=== PATIENT | female | born 1955 | race Caucasian/White ===

== ENCOUNTER → 2017-04-22 | Outpatient (CLI) | payer OTHER ==
--- NOTE | 2017-04-23 11:38 | MM ---
Reason for exam: screening (asymptomatic). Last mammogram was performed 1 year ago. History: Patient is postmenopausal. Family history of breast cancer in maternal cousin at age 30 and breast cancer in paternal aunt at age 30. Took estrogen for 2 years. Physical Findings: A clinical breast exam by your physician is recommended on an annual basis and results should be correlated with mammographic findings. MG Screening Mammo w CAD Bilateral CC and MLO view(s) were taken. Prior study comparison: April 21, 2016, bilateral MG screening mammo w CAD. May 11, 2014, bilateral MG screening mammo w CAD. April 12, 2013, bilateral digital screening mammo w/CAD. The breast tissue is heterogeneously dense. This may lower the sensitivity of mammography. Finding: There are typically benign calcifications in both breasts. Stable nodule upper outer right breast. No significant changes in finding since April 21, 2016, May 11, 2014, and April 12, 2013. ASSESSMENT: Benign, BI-RAD 2 RECOMMENDATION: Routine screening mammogram of both breasts in 1 year.
== END ==
LOC: RADMAMWWP 10:07
PROVIDERS: ATTEND Internal Medicine
DX: Z12.31 Encounter for screening mammogram for malignant neoplasm of breast (principal)

== ENCOUNTER → 2019-12-11 | Outpatient (CLI) | payer MEDICARE ==
--- NOTE | 2019-12-11 17:00 | BD ---
EXAMINATION TYPE: Axial Bone Density DATE OF EXAM: 12/11/2019 COMPARISON: NONE CLINICAL HISTORY: 62-year-old female disorder of bone, postmenopausal screening Height: 5 FT 3 IN Weight: 246 FRAX RISK QUESTIONS: Alcohol (3 or more units per day): NO Family History (Parent hip fracture): NO Glucocorticoids (More than 3mos): NO (Ex: prednisone, prednisolone, methylprednisolone, dexamethasone, and hydrocortisone). History of Fracture in Adulthood: NO Secondary Osteoporosis: 1. Type 1 Diabetes: NO 2. Hyperthyroidism: NO 3. Menopause before 45: 4. Malnutrition: NO 5. Chronic liver disease: NO Rheumatoid Arthritis: NO Current Tobacco Use: NO RISK FACTORS HISTORY OF: Active: YES Postmenopausal woman: PART HYST AGE 31 SYMPTOMS 43 Take estrogen and/or progesterone medications: USED AN ESTROGEN PATCH FOR A SHORT TIME Poor Health: FAIR MEDICATIONS: Additional Medications: METFORMIN, GLIPIZIDE, HYDROCHLORTHIAZIDE, ASPIRIN, LIPITOR, GABAPENTIN, INSU GENET, METOPROLOL, Additional History: EXAM MEASUREMENTS: Bone mineral densitometry was performed using the [employer] System. Bone mineral density as measured about the Lumbar spine is: ----- L1-L4(G/cm2): 1.091 T Score Values are as follows: ----- L2: -1.1 ----- L3: -0.4 ----- L4: -0.7 ----- L1-L4: -0.7 Bone mineral density has: DECREASED -6.5 % since study of: 2015 Bone mineral density about the R hip (g/cm2): 0.915 Bone mineral density about the L hip (g/cm2): 0.858 T Score values are as follows: -----R Neck: -0.9 -----L Neck: -1.3 -----R Total: 0.2 -----L Total: -0.2 Bone mineral density has: DECREASED -6.3 % since study of: 2015 IMPRESSION: Osteopenia (T Score between -2.5 and -1). There is slightly increased risk of fracture and the patient may be considered for treatment. Re-Screen 2-5 years. NOTE: T-SCORE=SD OF THE YOUNG ADULT MEAN.
--- NOTE | 2019-12-13 08:52 | MM ---
Reason for exam: screening (asymptomatic). Last mammogram was performed 2 years and 8 months ago. History: Patient is postmenopausal. Family history of breast cancer in maternal cousin at age 30 and breast cancer in paternal aunt at age 30. Took estrogen for 2 years. Physical Findings: A clinical breast exam by your physician is recommended on an annual basis and results should be correlated with mammographic findings. MG 3D Screening Mammo W/Cad Bilateral CC and MLO view(s) were taken. Prior study comparison: April 22, 2017, bilateral MG screening mammo w CAD. April 21, 2016, bilateral MG screening mammo w CAD. The breast tissue is heterogeneously dense. This may lower the sensitivity of mammography. There is chronic nodularity in the right breast. Lobulated and elongated nodularity superiorly in the left breast. ASSESSMENT: Incomplete: need additional imaging evaluation, BI-RAD 0 RECOMMENDATION: Special view mammogram and ultrasound of the left breast. (3D) [facility] will attempt to contact patient to return for supplemental views and ultrasound.
== END | disposition home or self-care (01) ==
LOC: RADMAMWWP 15:07
PROVIDERS: ATTEND Internal Medicine
DX: Z12.31 Encounter for screening mammogram for malignant neoplasm of breast (principal); M85.89 Other specified disorders of bone density and structure, multiple sites
CPT/HCPCS: 77063; 77067; 77080

== ENCOUNTER → 2019-12-21 | Outpatient (CLI) | payer MEDICARE ==
--- NOTE | 2019-12-21 10:35 | MM ---
Reason for exam: additional evaluation requested from abnormal screening. Last mammogram was performed less than 1 month ago. History: Patient is postmenopausal. Family history of breast cancer in maternal cousin at age 30 and breast cancer in paternal aunt at age 30. Took estrogen for 2 years. Physical Findings: Nurse did not find any significant physical abnormalities on exam. MG 3D Work Up W/Cad LT Spot compression CC, spot compression MLO, and ML view(s) were taken of the left breast. Prior study comparison: December 11, 2019, bilateral MG 3d screening mammo w/cad. April 22, 2017, bilateral MG screening mammo w CAD. The breast tissue is heterogeneously dense. This may lower the sensitivity of mammography. There is no discrete abnormality including area of concern left CC. These results were verbally communicated with the patient and result sheet given to the patient on 12/21/19. ASSESSMENT: Probably benign, BI-RAD 3 RECOMMENDATION: Follow-up diagnostic mammogram of the left breast in 6 months.
--- NOTE | 2019-12-21 10:36 | USB ---
Reason for exam: additional evaluation requested from abnormal screening. History: Patient is postmenopausal. Family history of breast cancer in maternal cousin at age 30 and breast cancer in paternal aunt at age 30. Took estrogen for 2 years. US Breast Limited LT Left limited breast ultrasound including focal area of concern, retroareolar and axilla demonstrates a 0.4 x 0.3 x 0.2cm cystic lesion at 11 o'clock. These results were verbally communicated with the patient and result sheet given to the patient on 12/21/19. ASSESSMENT: Probably benign, BI-RAD 3 RECOMMENDATION: Follow-up diagnostic mammogram and ultrasound of the left breast in 6 months.
== END | disposition home or self-care (01) ==
LOC: RADMAMWWP 09:16
PROVIDERS: ATTEND Internal Medicine
DX: R92.8 Other abnormal and inconclusive findings on diagnostic imaging of breast (principal)
CPT/HCPCS: 77061; 77065

== ENCOUNTER → 2020-09-04 | Outpatient (CLI) | payer MEDICARE ==
--- NOTE | 2020-09-04 10:35 | MM ---
Reason for exam: follow-up at short interval from prior study. Last mammogram was performed 8 months ago. History: Patient is postmenopausal. Family history of breast cancer in maternal cousin at age 30 and breast cancer in paternal aunt at age 30. Took estrogen for 2 years. Physical Findings: Nurse did not find any significant physical abnormalities on exam. MG Diagnostic Mammo LT w CAD CC and MLO view(s) were taken of the left breast. Prior study comparison: December 21, 2019, left breast MG 3d work up w/cad LT. December 11, 2019, bilateral MG 3d screening mammo w/cad. There are scattered fibroglandular densities. Benign secretory calcifications. Subareolar nodularity on the left is stable for 6 months. The other areas of nodularity are not was well seen currently. These results were verbally communicated with the patient and result sheet given to the patient on 09/04/20. ASSESSMENT: Incomplete: need additional imaging evaluation, BI-RAD 0 RECOMMENDATION: Ultrasound of the left breast.
--- NOTE | 2020-09-04 10:36 | USB ---
Reason for exam: follow-up at short interval from prior study. History: Patient is postmenopausal. Family history of breast cancer in maternal cousin at age 30 and breast cancer in paternal aunt at age 30. Took estrogen for 2 years. US Breast Limited LT Left limited breast ultrasound including focal area of concern, retroareolar and axilla demonstrates no cystic or solid lesion seen. 9-12 o'clock scanned. 6 month follow up for anterior lateral nodularity stable for 6 months. These results were verbally communicated with the patient and result sheet given to the patient on 09/04/20. ASSESSMENT: Probably benign, BI-RAD 3 RECOMMENDATION: Follow-up diagnostic mammogram of both breasts in 3 months. Back on schedule for November 2020.
== END | disposition home or self-care (01) ==
LOC: RADMAMWWP 09:05
PROVIDERS: ATTEND Internal Medicine
DX: R92.8 Other abnormal and inconclusive findings on diagnostic imaging of breast (principal)
CPT/HCPCS: 77065

== ENCOUNTER → 2021-01-17 | Outpatient (CLI) | payer MEDICARE ==
--- NOTE | 2021-01-20 08:02 | MM ---
Reason for exam: additional evaluation requested from prior study. Last mammogram was performed 4 months ago. History: Patient is postmenopausal. Family history of breast cancer in maternal cousin at age 30 and breast cancer in paternal aunt at age 30. Took estrogen for 2 years. Physical Findings: Nurse did not find any significant physical abnormalities on exam. MG Diagnostic Mammo w CAD [facility]ANAY Bilateral CC and MLO view(s) were taken. Spot compression MLO view(s) were taken of the right breast. LM view(s) were taken of the left breast. Prior study comparison: September 04, 2020, left breast MG diagnostic mammo LT w CAD. December 21, 2019, left breast MG 3d work up w/cad LT. The breast tissue is heterogeneously dense. This may lower the sensitivity of mammography. Benign appearing bilateral calcifications. There is chronic nodularity in the right breast. No significant new findings when compared with previous films. These results were verbally communicated with the patient and result sheet given to the patient on 01/17/21. ASSESSMENT: Benign, BI-RAD 2 RECOMMENDATION: Routine screening mammogram of both breasts in 1 year.
== END | disposition home or self-care (01) ==
LOC: RADMAMWWP 14:17
PROVIDERS: ATTEND Internal Medicine
DX: R92.1 Mammographic calcification found on diagnostic imaging of breast (principal); Z78.0 Asymptomatic menopausal state; Z80.3 Family history of malignant neoplasm of breast
CPT/HCPCS: 77066

== ENCOUNTER → 2021-02-27 | Outpatient (CLI) | payer MEDICARE ==
--- NOTE | 2021-02-27 12:48 | XR ---
EXAMINATION TYPE: XR chest 2V DATE OF EXAM: 02/27/2021 COMPARISON: NONE HISTORY: Cough for one year TECHNIQUE: Frontal and lateral views of the chest are obtained. FINDINGS: There is no focal air space opacity, pleural effusion, or pneumothorax seen. The cardiac silhouette size is enlarged. The osseous structures are intact. IMPRESSION: Cardiomegaly without acute pulmonary process.
== END | disposition home or self-care (01) ==
LOC: RADXRMAIN 12:24
PROVIDERS: ATTEND Internal Medicine
DX: I51.7 Cardiomegaly (principal)
CPT/HCPCS: 71046

== ENCOUNTER → 2022-07-27 | Outpatient (CLI) | payer MEDICARE ==
--- NOTE | 2022-07-28 08:05 | MM ---
Reason for Exam: Screening (asymptomatic). Last mammogram was performed 1 year(s) and 7 month(s) ago. Patient History: Menarche at age 11. First Full-Term at age 20. Hysterectomy at age 31. Postmenopausal. Patient used Estrogen for 2 years. Maternal cousin had breast cancer, age 30. Paternal aunt had breast cancer, age 30. Risk Values: Meg 5 year model risk: 1.5%. NCI Lifetime model risk: 4.8%. Prior Study Comparison: 12/21/2019 Left Diagnostic Mammogram, [facility]. 09/04/2020 Left Diagnostic Mammogram, [facility]. 01/17/2021 Bilateral Diagnostic Mammogram, [facility]. Tissue Density: The breast tissue is heterogeneously dense. This may lower the sensitivity of mammography. Findings: Analyzed By CAD. There are 2 asymmetries within the lateral right breast middle depth only definitively visualized on CC view with additional middle depth central asymmetry on the MLO view. No suspicious group of microcalcifications. No suspicious mass in the left breast. Overall Assessment: Incomplete: need additional imaging evaluation, BI-RAD 0 Management: Diagnostic Mammogram of the right breast. A clinical breast exam by your physician is recommended on an annual basis and results should be correlated with mammographic findings. [facility] will attempt to contact patient to return for supplemental views and ultrasound if indicated. Electronically signed and approved by: Kev Adams D.O.
== END | disposition home or self-care (01) ==
LOC: RADMAMWWP 13:45
PROVIDERS: ATTEND Internal Medicine
DX: Z12.31 Encounter for screening mammogram for malignant neoplasm of breast (principal); Z78.0 Asymptomatic menopausal state; Z80.3 Family history of malignant neoplasm of breast
CPT/HCPCS: 77063; 77067

== ENCOUNTER → 2022-07-31 | Outpatient (CLI) | payer MEDICARE ==
--- NOTE | 2022-07-31 10:13 | MM ---
Reason for Exam: Additional evaluation requested from abnormal screening. Last screening mammogram was performed less than 1 month ago. Patient History: Menarche at age 11. First Full-Term at age 20. Hysterectomy at age 31. Postmenopausal. Patient used Estrogen for 2 years. Maternal cousin had breast cancer, age 30. Paternal aunt had breast cancer, age 30. Risk Values: Meg 5 year model risk: 1.5%. NCI Lifetime model risk: 4.8%. Tissue Density: Right: The breast tissue is heterogeneously dense. This may lower the sensitivity of mammography. Findings: Analyzed By CAD. There is persistence of the 2 nodular densities in the lower outer quadrant right breast. This includes a 3 mm density in the mid right breast 8 cm from the nipple and a 7 mm density in the mid right breast 11 cm from the nipple. Additional evaluation with ultrasound is recommended. There appear to be additional nodules within the right breast. Slightly lateral at the 9:00 position 7 cm from the nipple is a 7 mm density. This may have been present previously. Overall Assessment: Incomplete: need additional imaging evaluation, BI-RAD 0 Management: Diagnostic Breast Ultrasound of the right breast. A negative mammogram report should not preclude additional follow up of suspicious palpable abnormalities. Patient should continue monthly self breast exam. A clinical breast exam by your physician is recommended on an annual basis and results should be correlated with mammographic findings. Electronically signed and approved by: Shawn Goff D.O. Radiologis
--- NOTE | 2022-07-31 10:56 | USB ---
Reason for Exam: Follow-up at short interval from prior study. Patient History: Menarche at age 11. First Full-Term at age 20. Hysterectomy at age 31. Postmenopausal. Patient used Estrogen for 2 years. Maternal cousin had breast cancer, age 30. Paternal aunt had breast cancer, age 30. Risk Values: Meg 5 year model risk: 1.5%. NCI Lifetime model risk: 4.8%. Technique: Method: Targeted. Prior Study Comparison: 09/04/2020 Left Diagnostic Mammogram, [facility]. 01/17/2021 Bilateral Diagnostic Mammogram, [facility]. 07/27/2022 Bilateral MG 3D screening mammo w/cad, [facility]. Findings: The upper outer quadrant of the right breast, the axilla of the right breast and the retroareolar of the right breast were scanned. There is a 0.3 x 0.3 x 0.4cm hypoechoic area with posterior wall enhancement 9:00 position 8 cm from nipple. There is a solid lesion at the 9:00 position 11 cm from nipple measuring 0.7 x 0.6 x 0.6 cm. A biopsy of this lesion is recommended. Overall Assessment: Suspicious, BI-RAD 4 Management: Ultrasound Core Biopsy of the right breast. A clinical breast exam by your physician is recommended on an annual basis and results should be correlated with mammographic findings. Electronically signed and approved by: Shawn Goff D.O. Radiologis
== END | disposition home or self-care (01) ==
LOC: RADMAMWWP 09:16
PROVIDERS: ATTEND Internal Medicine
DX: R92.8 Other abnormal and inconclusive findings on diagnostic imaging of breast (principal); Z80.3 Family history of malignant neoplasm of breast; Z78.0 Asymptomatic menopausal state
CPT/HCPCS: 77065; 76642; G0279; 77061

== ENCOUNTER → 2022-08-11 | Day surgery (SDC) | payer MEDICARE ==
--- NOTE | 2022-08-13 13:22 | USB ---
Risk Values: Meg 5 year model risk: 1.5%. NCI Lifetime model risk: 4.8%. Pathology Description: Location: 9 o'clock, upper outer quadrant, middle. Marker Left Behind. Needle Type: Mammotome Cores: 5 Gauge: 13 The procedure of ultrasound guided core biopsy was explained to the patient. Benefits, alternatives, and risks were discussed. An informed consent was then obtained. The isoechoic solid mass measuring 6 mm located at 9:00 position 11 cm from the nipple is identified and targeted for biopsy. The patient was placed in supine positioning for imaging and for the procedure. The overlying skin was prepped and draped in usual sterile fashion. Lidocaine was used as anesthetic into the skin and subcutaneous tissue up to area of concern in the 9:00 right breast. Under ultrasound guidance, a 13-gauge vacuum-assisted mammotome Elite biopsy gun was used to obtain 5 core samples. Following this, a [employer] T3 clip was left in lesion. The patient tolerated the procedure well without any immediate complication. The patient was kept in the radiology department for short stay after the procedure and then discharged home in stable condition. Postprocedure mammogram: The patient was transferred to mammography for physician ordered post procedure mammogram for clip placement verification. Postprocedure mammogram shows clip at the 9:00 position corresponding to one of the sites of mammographic nodularity. IMPRESSION: Successful, uncomplicated ultrasound guided core biopsy of indeterminate 6 mm solid nodule 9:00 right breast, mammographic correlate, full pathology results to follow. Pathology Results: Result: Benign, Fibroadenoma. 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 Focal microcalcification present. Fibrocystic change with apocrine metaplasia and columnar cell change/hyperplasia present. Tissue Density: Right: The breast tissue is heterogeneously dense. This may lower the sensitivity of mammography. Overall Assessment: Benign Assessment: MG diagnostic mammo RT wo CAD - Right: Benign, BI-RAD 2. Management: Diagnostic Breast Ultrasound of the right breast in 6 months. Electronically signed and approved by: Paula Vasquez M.D. Radiologist
== END ==
LOC: RADUSWWP 12:28
PROVIDERS: ATTEND Internal Medicine
DX: D24.1 Benign neoplasm of right breast (principal); N60.81 Other benign mammary dysplasias of right breast; N62 Hypertrophy of breast; R92.8 Other abnormal and inconclusive findings on diagnostic imaging of breast
CPT/HCPCS: 88305; 77065; 19083; A4648

== ENCOUNTER → 2023-07-28 | Outpatient (CLI) | payer MEDICARE ==
--- NOTE | 2023-07-28 09:55 | MM ---
Reason for Exam: Additional evaluation requested from prior study. Last screening mammogram was performed 12 month(s) ago. Patient History: Menarche at age 11. First Full-Term at age 20. Hysterectomy at age 31. Postmenopausal. Patient used Estrogen for 2 years. 08/11/2022, Benign US biopsy breast VAD RT on the right side. Maternal cousin had breast cancer, age 30. Paternal aunt had breast cancer, age 30. Risk Values: Meg 5 year model risk: 1.8%. NCI Lifetime model risk: 5.3%. Prior Study Comparison: 04/21/2016 Bilateral Screening Mammogram, [facility]. 04/22/2017 Bilateral Screening Mammogram, [facility]. 12/11/2019 Bilateral Screening Mammogram, [facility]. 12/21/2019 Left Diagnostic Mammogram, [facility]. 12/21/2019 Left Diagnostic Ultrasound, [facility]. 09/04/2020 Left Diagnostic Mammogram, [facility]. 09/04/2020 Left Diagnostic Ultrasound, [facility]. 01/17/2021 Bilateral Diagnostic Mammogram, [facility]. 07/27/2022 Bilateral MG 3D screening mammo w/cad, [facility]. 07/31/2022 Right US breast workup limited RT, [facility]. 07/31/2022 Right MG 3D work up w/cad RT, [facility]. 08/11/2022 Right MG diagnostic mammo RT wo CAD, [facility]. Tissue Density: The breast tissue is heterogeneously dense. This may lower the sensitivity of mammography. Findings: Analyzed By CAD. No new suspicious mass or group of microcalcifications within either breast. Benign-appearing callus cages within both breasts. 2 stable asymmetries within the left breast on the cc view. Biopsy clip within the right breast. Overall Assessment: Benign, BI-RAD 2 Management: Diagnostic Mammogram of both breasts in 1 year. A clinical breast exam by your physician is recommended on an annual basis and results should be correlated with mammographic findings. This exam should not preclude additional follow-up of suspicious palpable abnormalities. Results were given to the patient verbally at the time of exam. Note on Meg scores and lifetime risk: 1. A Meg score greater than 3% is considered moderate risk. If this is the case, consider specialist referral to assess eligibility for a risk reducing agent. If overall lifetime risk for the development of breast cancer is 20% or higher, the patient may qualify for future screening with alternating mammogram and breast MRI. Electronically signed and approved by: Kev Adams D.O.
== END | disposition home or self-care (01) ==
LOC: RADMAMWWP 09:24
PROVIDERS: ATTEND Internal Medicine
DX: R92.8 Other abnormal and inconclusive findings on diagnostic imaging of breast (principal); Z78.0 Asymptomatic menopausal state; Z80.3 Family history of malignant neoplasm of breast
CPT/HCPCS: 77062; 77066

== ENCOUNTER → 2025-05-02 | Outpatient (CLI) | payer MEDICARE ==
--- NOTE | 2025-05-02 16:02 | BD ---
EXAMINATION TYPE: Axial Bone Density DATE OF EXAM: 05/02/2025 CLINICAL HISTORY: 70 years old Female. ICD-10 CODE: M85.88 DISORDER OF BONE , Additional History: Height: 62 Weight: 250 FRAX RISK QUESTIONS: Family History (Parent hip fracture): no History of Fracture in Adulthood: no Secondary Osteoporosis: no RISK FACTORS HISTORY OF: Surgery to Spine/Hip(right/left)/Wrist (right/left): no MEDICATIONS: Thyroid Medications: no Osteoporosis Medications: no EXAM MEASUREMENTS: Bone mineral densitometry was performed using the [employer] System. Bone mineral density as measured about the Lumbar spine is: ----- L1-L4(G/cm2): 1.109 T Score Values are as follows: ----- L1: -1.4 ----- L2: -0.5 ----- L3: -0.3 ----- L4: -0.5 ----- L1-L4: -0.6 Z Score Values are as follows: ----- L1: -0.9 ----- L2: 0.0 ----- L3: 0.2 ----- L4: 0.0 ----- L1-L4: -0.1 Bone mineral density has: Increased 1.6% since study of: 12/11/2019 Bone mineral density about the R hip (g/cm2): 0.988 Bone mineral density about the L hip (g/cm2): 0.970 T Score values are as follows: -----R Neck: -1.3 -----L Neck: -1.4 -----R Total: -0.2 -----L Total: -0.3 Z Score values are as follows: -----R Neck: -0.3 -----L Neck: -0.4 -----R Total: 0.6 -----L Total: 0.4 Bone mineral density has: Decreased -2.6% since study of: 12-11-2019 FRAX%s: The graph provided illustrates a 8.7% chance for a major osteoporotic fx and a 1.2% chance fo r the hips probability for fx in 10 years time. IMPRESSION: Osteopenia (T Score between -2.5 and -1) femoral neck level in both hips. There is slightly increased risk of fracture and the patient may be considered for treatment. Re-Screen 2-5 years. NOTE: T-SCORE=SD OF THE YOUNG ADULT MEAN. [facility], , 05/02/2025 4:00 PM
--- NOTE | 2025-05-03 06:11 | MM ---
Reason for Exam: Screening (asymptomatic). Last mammogram was performed 1 year(s) and 9 month(s) ago. Patient History: Menarche at age 11. First Full-Term at age 20. Hysterectomy at age 31. Postmenopausal. Patient used Estrogen for 2 years. 08/11/2022, Benign US biopsy breast VAD RT on the right side. Maternal cousin had breast cancer, age 30. Paternal aunt had breast cancer, age 30. Risk Values: Meg 5 year model risk: 1.9%. NCI Lifetime model risk: 4.8%. Prior Study Comparison: 07/31/2022 Right MG 3D work up w/cad RT, [facility]. 08/11/2022 Right MG diagnostic mammo RT wo CAD, [facility]. 07/28/2023 Bilateral MG 3D diag mammo w/cad PRANAY, [facility]. Tissue Density: The breasts are heterogeneously dense, which may obscure small masses. Findings: Analyzed By CAD. There is mammotome biopsy clip in the right breast redemonstrated. There are benign-appearing linear calcifications bilaterally redemonstrated. Prominent but benign-appearing bilateral axillary lymph nodes are redemonstrated. There is developing 5.0 cm distortion in the middle likely inferior aspect of the left breast. Overall Assessment: Incomplete: need additional imaging evaluation, BI-RAD 0 Management: Diagnostic Mammogram of the left breast. Diagnostic Breast Ultrasound of the left breast. Return for additional spot 3-D CC and 3-D true lateral views left breast. Targeted ultrasound is advised after diagnostic mammogram. Patient should continue monthly self-breast exams. A clinical breast exam by your physician is recommended on an annual basis. This exam should not preclude additional follow-up of suspicious palpable abnormalities. Note on Meg scores and lifetime risk: 1. A Meg score greater than 3% is considered moderate risk. If this is the case, consider specialist referral to assess eligibility for a risk reducing agent. 2. If overall lifetime risk for the development of breast cancer is 20% or higher, the patient may qualify for future screening with alternating mammogram and breast MRI. [facility], , 05/03/2025 6:08 AM. Electronically signed and approved by: Chino Wong M.D.
== END | disposition home or self-care (01) ==
LOC: RADMAMWWP 15:13
PROVIDERS: ATTEND Internal Medicine
DX: Z12.31 Encounter for screening mammogram for malignant neoplasm of breast (principal); M85.89 Other specified disorders of bone density and structure, multiple sites; M85.88 Other specified disorders of bone density and structure, other site; N95.1 Menopausal and female climacteric states; R92.333 Mammographic heterogeneous density, bilateral breasts; Z80.3 Family history of malignant neoplasm of breast
CPT/HCPCS: 77063; 77067; 77080

== ENCOUNTER → 2025-05-14 | Outpatient (CLI) | payer MEDICARE ==
--- NOTE | 2025-05-15 08:21 | MM ---
Reason for Exam: Additional evaluation requested from abnormal screening. Last screening mammogram was performed less than 1 month ago. Patient History: Menarche at age 11. First Full-Term at age 20. Hysterectomy at age 31. Postmenopausal. Patient used Estrogen for 2 years. 08/11/2022, Benign US biopsy breast VAD RT on the right side. Maternal cousin had breast cancer, age 30. Paternal aunt had breast cancer, age 30. Risk Values: Meg 5 year model risk: 1.9%. NCI Lifetime model risk: 4.8%. Prior Study Comparison: 08/11/2022 Right MG diagnostic mammo RT wo CAD, [facility]. 07/28/2023 Bilateral MG 3D diag mammo w/cad [facility], [facility]. 05/02/2025 Bilateral MG 3D screening mammo w/cad, [facility]. Tissue Density: Left: The breasts are heterogeneously dense, which may obscure small masses. Findings: Analyzed By CAD. Spiculated mass left breast inner lower margin measuring 17 mm 6.5 cm from the nipple. Overall Assessment: Incomplete: need additional imaging evaluation, BI-RAD 0 Management: Diagnostic Breast Ultrasound of the left breast. Results were given to the patient verbally at the time of exam. Patient should continue monthly self-breast exams. A clinical breast exam by your physician is recommended on an annual basis. This exam should not preclude additional follow-up of suspicious palpable abnormalities. Note on Meg scores and lifetime risk: 1. A Meg score greater than 3% is considered moderate risk. If this is the case, consider specialist referral to assess eligibility for a risk reducing agent. 2. If overall lifetime risk for the development of breast cancer is 20% or higher, the patient may qualify for future screening with alternating mammogram and breast MRI. [facility], , 05/15/2025 8:18 AM. Electronically signed and approved by: Tay Johnson DO
--- NOTE | 2025-05-15 08:24 | USB ---
Reason for Exam: Additional evaluation requested from abnormal screening. Patient History: Menarche at age 11. First Full-Term at age 20. Hysterectomy at age 31. Postmenopausal. Patient used Estrogen for 2 years. 08/11/2022, Benign US biopsy breast VAD RT on the right side. Maternal cousin had breast cancer, age 30. Paternal aunt had breast cancer, age 30. Risk Values: Meg 5 year model risk: 1.9%. NCI Lifetime model risk: 4.8%. Technique: Method: Targeted. Prior Study Comparison: 08/11/2022 Right MG diagnostic mammo RT wo CAD, [facility]. 07/28/2023 Bilateral MG 3D diag mammo w/cad [facility], [facility]. 05/02/2025 Bilateral MG 3D screening mammo w/cad, [facility]. Findings: The lower section of the breast of the left breast, the axilla of the left breast and the retroareolar of the left breast were scanned. Technique utilized:US breast workup limited LT Image; Ultrasound imaging of: Area of concern, retroareolar region and axilla. Spiculated hypoechoic mass at 6:00 4 cm from the nipple measuring up to 18 mm correlating with mammography highly suspicious for malignancy. No suspicious lymph nodes identified. Overall Assessment: Highly suggestive of malignancy, BI-RAD 5 Management: Ultrasound Core Biopsy of the left breast. A clinical breast exam by your physician is recommended on an annual basis and results should be correlated with mammographic findings. This exam should not preclude additional follow-up of suspicious palpable abnormalities. Results were given to the patient verbally at the time of exam. [facility], , 05/15/2025 8:21 AM. Electronically signed and approved by: Tay Johnson DO
== END | disposition home or self-care (01) ==
LOC: RADMAMWWP 14:58
PROVIDERS: ATTEND Internal Medicine
DX: R92.8 Other abnormal and inconclusive findings on diagnostic imaging of breast (principal); R92.332 Mammographic heterogeneous density, left breast; Z78.0 Asymptomatic menopausal state; Z80.3 Family history of malignant neoplasm of breast
CPT/HCPCS: 77061; 77065